=== PATIENT | female | born 1990 | race Caucasian/White ===

== ENCOUNTER 2021-11-30 22:06 | Emergency (ER) | payer BC ==
[2021-11-30] MEDS ORDERED: Meclizine 25 MG Tab PO ONE (22:12)
[2021-11-30 22:47] LABS: ANION GAP 10.7 meq/L (7-15); CHLORIDE,CL 104 mmol/L (98-107); ESTIMATED GFR 75 mL/min (>=60); SODIUM,NA 141 mmol/L (136-145)
== END 2021-11-30 23:00 | disposition home or self-care (01) ==
LOC: LL.ED 22:06
DX: R42 Dizziness and giddiness (principal); Z91.010 Allergy to peanuts; Z91.018 Allergy to other foods; Z91.048 Other nonmedicinal substance allergy status; Z79.899 Other long term (current) drug therapy
CPT/HCPCS: 36415; 80053; 85025; 99284; A9270-GY